=== PATIENT | male | born 1950 | race Caucasian/White ===

== ENCOUNTER 2021-08-05 13:09 | Outpatient (CLI) | payer SELFPAY | END 2021-08-05 13:10 | disposition EMS.NT | LOC: EMS 13:09 | DX: R60.0 Localized edema (principal); L98.8 Other specified disorders of the skin and subcutaneous tissue ==

== ENCOUNTER 2021-08-05 13:49 | Emergency (ER) | payer SELFPAY ==
[2021-08-05 14:30] LABS: BASOPHILS % (AUTO) 0.5 %; EOSINOPHILS # (AUTO) 0.1 10^3/uL (0.0-0.7); EOSINOPHILS % (AUTO) 1.5 %; HCT - HEMATOCRIT 44.8 % (42.0-52.0); HGB - HEMOGLOBIN 14.6 g/dL (14.0-18.0); LYMPHOCYTES # (AUTO) 1.2 10^3/uL (1.5-3.5); LYMPHOCYTES % (AUTO) 13.8 %; MEAN CORPUSCULAR HEMOGLOBIN 32.4 pg (27.0-31.0); MEAN CORPUSCULAR HGB CONC 32.6 g/dL (32.0-36.0); MEAN CORPUSCULAR VOLUME 99.6 fL (80.0-94.0); MEAN PLATELET VOLUME 8.8 fL (7.4-11.4); MONOCYTES # (AUTO) 0.5 10^3/uL (0.0-1.0); MONOCYTES % (AUTO) 5.3 %; NEUTROPHILS # (AUTO) 6.6 10^3/uL (1.5-6.6); NEUTROPHILS % (AUTO) 78.5 %; PLT - PLATELET COUNT 208 10^3/uL (130-450); RED CELL DISTRIBUTION WIDTH 13.4 % (12.0-15.0); WHITE BLOOD COUNT 8.4 x10^3/uL (4.8-10.8)
[2021-08-05 14:36] LABS: CALCIUM 9.4 mg/dL (8.5-10.3); CREATININE 0.8 mg/dL (0.6-1.2); MAGNESIUM 1.9 mg/dL (1.7-2.8); POTASSIUM 3.9 mmol/L (3.5-5.0)
--- NOTE | 2021-08-05 14:58 | ED Physician Documentation ---
PD HPI SKIN - Stated complaint Stated Complaint: FEET SWELLING - Chief complaint Chief Complaint: Ext Problem - History obtained from History obtained from: Patient - History of Present Illness Timing - onset: How many days ago (3-4) Timing - duration: Days (3-4) Timing - details: Abrupt onset (He states he has had some dyspnea on exertion for couple of weeks without necessarily noticing any edema orthopnea. Significant onset of bilateral lower leg and feet edema over the last several days with blister formation and weeping. No fever or chills. No chest pain but just short of breath.), Still present Location: RLE, LLE Quality / character: Discolored (mild redness both feet and toes, without noted warmth per se.), Swelling, Draining Associated symptoms: Dyspnea. No: Fever, Headache, Abd pain, N/V/D Similar symptoms before: Has not had sx before Recently seen: Not recently seen, Other (COVID vaccine 5 months ago.) Review of Systems Constitutional: denies: Fever, Chills Nose: denies: Rhinorrhea / runny nose, Congestion Throat: denies: Sore throat Cardiac: reports: Pedal edema (new onset over past several days, significant amount). denies: Chest pain / pressure (but feeling of tightness.), Palpitations, Calf pain Respiratory: reports: Dyspnea. denies: Cough, Hemoptysis GI: denies: Abdominal Pain, Nausea, Vomiting, Diarrhea : denies: Frequency, Unable to Void Skin: reports: Other (blisters with significant dripping weeping both lower legs/feet/toes.) Musculoskeletal: reports: Extremity swelling. denies: Neck pain, Back pain PD PAST MEDICAL HISTORY - Past Medical History Cardiovascular: Hypertension, High cholesterol Respiratory: None Endocrine/Autoimmune: None - Past Surgical History Past Surgical History: Yes - Present Medications Home Medications: Ambulatory Orders Medication Instructions Recorded Confirmed Atorvastatin Calcium [Lipitor] 08/21/15 08/21/15 - Allergies Allergies/Adverse Reactions: Allergies Allergy/AdvReac Type Severity Reaction Status Date / Time No Known Drug Allergies Allergy Verified 08/05/21 13:51 - Social History Does the pt smoke?: No Smoking Status: Never smoker Does the pt drink ETOH?: Yes Does the pt have substance abuse?: No - Immunizations Immunizations are current?: Yes PD ED PE NORMAL - Vitals Vital signs reviewed: Yes (tachycardic. BP okay. Sats 95% RA.) - General General: Alert and oriented X 3, Well developed/nourished, Other (appears somewhat short of breath with talking. ) - HEENT HEENT: Pharynx benign - Neck Neck: Supple, no meningeal sign, No adenopathy, Other (JVD present at 45 degrees) - Cardiac Cardiac: RRR (tachycardic but regular. ), No murmur - Respiratory Respiratory: No: Clear bilaterally (fine crackles at both bases/lower third. No accessory muscle use. Some dyspnea with complete sentences. ) - Abdomen Abdomen: Soft, Non tender, Non distended - Male Male : Other (no scrotal edema. ) - Back Back: No CVA TTP - Derm Derm: Normal color, Warm and dry - Extremities Extremities: No tenderness to palpate, Other (3+ pedal edema in both legs up to the knees. There is some redness and inflammation appearing on the dorsum of both feet and on the toes with blister formation scattered over the feet and lower legs. They are weeping clear yellow fluid without any purulence. Minimal warmth of the skin. symmetric.). No: Normal ROM s pain (sluggish ROM of the lower legs appearing from weak/heavy. ) - Neuro Neuro: Alert and oriented X 3, No motor deficit, Normal speech Eye Opening: Spontaneous Motor: Obeys Commands Verbal: Oriented GCS Score: 15 Results - Vitals Vitals: Vital Signs - 24 hr 08/05/21 08/05/21 08/05/21 13:51 16:07 17:00 Temperature 36.5 C Heart Rate 118 H 92 87 Respiratory 20 18 17 Rate Blood Pressure 160/88 H 137/74 H 140/83 H O2 Saturation 97 95 95 Oxygen O2 Source Room air - Labs Labs: Microbiology 08/05/21 15:14 Wound Culture - Preliminary Foot - Left Laboratory Tests 08/05/21 08/05/21 08/05/21 14:21 14:21 14:21 WBC 8.4 RBC 4.50 L Hgb 14.6 Hct 44.8 MCV 99.6 H MCH 32.4 H MCHC 32.6 RDW 13.4 Plt Count 208 MPV 8.8 Neut # (Auto) 6.6 Lymph # (Auto) 1.2 L [place] # (Auto) 0.5 Eos # (Auto) 0.1 Baso # (Auto) 0.0 Absolute Nucleated RBC 0.00 Nucleated RBC % 0.0 Sodium 137 Potassium 3.9 Chloride 96 L Carbon Dioxide 29 Anion Gap 12.0 BUN 27 H Creatinine 0.8 Estimated GFR (MDRD) 96 Glucose 180 H Calcium 9.4 Magnesium 1.9 Troponin I High Sens B-Natriuretic Peptide 2225 H Nasal Adenovirus (PCR) Nasal B. parapertussis DNA (PCR) Nasal Coronavir 229E PCR Nasal Coronavir HKU1 PCR Nasal Coronavir NL63 PCR Nasal Coronavir OC43 PCR Nasal Enterovir/Rhinovir PCR Nasal Influenza B PCR Nasal Influenza A PCR Nasal Parainfluen 1 PCR Nasal Parainfluen 2 PCR Nasal Parainfluen 3 PCR Nasal Parainfluen 4 PCR Nasal RSV (PCR) Nasal B.pertussis DNA PCR Nasal C.pneumoniae (PCR) Td Human Metapneumo PCR Nasal M.pneumoniae (PCR) Nasal SARS-CoV-2 (PCR) 08/05/21 08/05/21 14:24 15:42 WBC RBC Hgb Hct MCV MCH MCHC RDW Plt Count MPV Neut # (Auto) Lymph # (Auto) [place] # (Auto) Eos # (Auto) Baso # (Auto) Absolute Nucleated RBC Nucleated RBC % Sodium Potassium Chloride Carbon Dioxide Anion Gap BUN Creatinine Estimated GFR (MDRD) Glucose Calcium Magnesium Troponin I High Sens 87.2 H* B-Natriuretic Peptide Nasal Adenovirus (PCR) NOT DETECTED Nasal B. parapertussis DNA (PCR) NOT DETECTED Nasal Coronavir 229E PCR NOT DETECTED Nasal Coronavir HKU1 PCR NOT DETECTED Nasal Coronavir NL63 PCR NOT DETECTED Nasal Coronavir OC43 PCR NOT DETECTED Nasal Enterovir/Rhinovir PCR NOT DETECTED Nasal Influenza B PCR NOT DETECTED Nasal Influenza A PCR NOT DETECTED Nasal Parainfluen 1 PCR NOT DETECTED Nasal Parainfluen 2 PCR NOT DETECTED Nasal Parainfluen 3 PCR NOT DETECTED Nasal Parainfluen 4 PCR NOT DETECTED Nasal RSV (PCR) NOT DETECTED Nasal B.pertussis DNA PCR NOT DETECTED Nasal C.pneumoniae (PCR) NOT DETECTED Td Human Metapneumo PCR NOT DETECTED Nasal M.pneumoniae (PCR) NOT DETECTED Nasal SARS-CoV-2 (PCR) NOT DETECTED - Rads (name of study) chest xray Radiology: Prelim report reviewed (enlarged heart silhouette. right atelectasis. ), See rad report duplex lower legs bilater Radiology: Prelim report reviewed (no DVT), See rad report PD MEDICAL DECISION MAKING - ED course Complexity details: reviewed results, considered differential (new onset CHF, consider heart failure, DC, renal failure, DVTs. Feet/legs do not appear infected and he does have general CHF symptoms so does not appear cellulitis/bullous impetigo. ), d/w patient ED course: The patient had been having significant difficulty with ambulating at home and states he was barely able to make it to the bathroom and back given his new trouble breathing and swelling of the legs. He does have significant edema to the point of blistering and weeping. They do not look infected per se. Ultrasound was done to evaluate for DVT and no DVT seen. He does have dyspnea on exertion but does not have significant crackles in the lungs so seems more likely right heart failure with some element of left heart failure. We do not have any beds available at our facility. The CNO had called surrounding facilities and also the [facility] transfer form and apparently no immediate beds available in surrounding facilities. At this point I feel the patient is not quite well enough for discharge and needs further diuresis and better evaluation of the new onset CHF. Therefore at this point will be boarding him in the ER with continued treatment of diuretics, watching electrolytes, wound care of the leg and feet blisters. We can reevaluate tomorrow and hopefully get an echocardiogram in the morning. Depending upon level of improvement, he might be able to discharge at that point for further outpatient evaluation and treatment. Otherwise we can see if beds become available upon discharge is tomorrow. Departure - Departure Clinical Impression: New onset of congestive heart failure, Dyspnea on exertion, Leg edema, Blister of leg Condition: Stable Record reviewed to determine appropriate education?: Yes
[2021-08-05] MEDS ORDERED: FUROSEMIDE 40 MG/4 ML VIAL IVP STA ×2 (15:17→17:17)
--- NOTE | 2021-08-05 15:45 | XRAY Report ---
PROCEDURE: Chest 1 View X-Ray INDICATIONS: chest pain TECHNIQUE: One view of the chest was acquired. COMPARISON: None. FINDINGS: SUPPORT DEVICES: Partially imaged cervical spine hardware. LUNGS/PLEURA: Minimal right lower lung zone densities. The remaining lung zones well aerated. No pleu ral effusion or pneumothorax. MEDIASTINUM: Enlargement of cardiac silhouette, partially exaggerated by technique BONES/SOFT TISSUES: No acute abnormality. Persistent elevation of the right diaphragm. IMPRESSION: 1.Right basilar atelectasis. Reviewed by: Luis Russell MD on 08/05/2021 3:44 PM PST Approved by: Luis Russell MD on 08/05/2021 3:44 PM PST Station ID: [id number]
[2021-08-05 16:56] LABS: B. PARAPERTUSSIS- RESP PCR PAN NOT DETECTED; B. PERTUSSIS- RESP PCR PANEL NOT DETECTED; C. PNEUMONIAE- RESP PCR PANEL NOT DETECTED; CORONAVIRUS 229E-RESP PCR NOT DETECTED; CORONAVIRUS HKU1-RESP PCR NOT DETECTED; CORONAVIRUS NL63-RESP PCR NOT DETECTED; CORONAVIRUS OC43-RESP PCR NOT DETECTED; HUMAN METAPNEUMOVIRUS NOT DETECTED; INFLUENZA A- RESP PCR PANEL NOT DETECTED; INFLUENZA B - RESP PCR PANEL NOT DETECTED; M. PNEUMONIAE- RESP PCR PANEL NOT DETECTED; PARAINFLUENZA VIRUS 1 NOT DETECTED; PARAINFLUENZA VIRUS 2 NOT DETECTED; PARAINFLUENZA VIRUS 3 NOT DETECTED; PARAINFLUENZA VIRUS 4 NOT DETECTED; RHINOVIRUS/ENTEROVIRUS NOT DETECTED; RSV- RESP PCR PANEL NOT DETECTED; SARS-CoV-2 -RESP PCR PANEL NOT DETECTED
--- NOTE | 2021-08-05 17:11 | Ultrasound Report ---
PROCEDURE: Duplex Ext Veins Bilateral INDICATIONS: Bilateral leg swelling. TECHNIQUE: Real-time imaging, as well as color and pulse Doppler interrogation, were performed of the deep veins of both legs from the inguinal ligament to the popliteal fossa. COMPARISON: None. FINDINGS: The deep veins are normally compressible, and free of intraluminal thrombus. Color and pu lse Doppler demonstrate normal phasic intravascular flow. There is normal augmentation response to d istal compression maneuver. Right greater than left lower extremity edema. IMPRESSION: 1. No sonographic evidence of DVT. Reviewed by: Luis Russell MD on 08/05/2021 5:09 PM [facility] Approved by: Luis Russell MD on 08/05/2021 5:09 PM [facility] Station ID: [id number]
[2021-08-05] MEDS ORDERED: ACETAMINOPHEN 325 MG TABLET PO STA (21:00)
[2021-08-05] MEDS: FUROSEMIDE 40 MG/4 ML VIAL IVP SCH (21:01)
[2021-08-05] MEDS ORDERED: oxyCODONE 5 MG TABLET PO STA (21:36)
[2021-08-05] MEDS ORDERED: METOPROLOL 5 MG/5 ML VIAL IVP STA (22:56)
[2021-08-05] MEDS ORDERED: METOPROLOL TARTRATE 50 MG TABLET PO STA (22:56)
[2021-08-06 06:57] LABS: BASOPHILS % (AUTO) 0.4 %; EOSINOPHILS # (AUTO) 0.1 10^3/uL (0.0-0.7); EOSINOPHILS % (AUTO) 0.7 %; HCT - HEMATOCRIT 41.8 % (42.0-52.0); HGB - HEMOGLOBIN 13.6 g/dL (14.0-18.0); LYMPHOCYTES # (AUTO) 1.1 10^3/uL (1.5-3.5); LYMPHOCYTES % (AUTO) 11.8 %; MEAN CORPUSCULAR HEMOGLOBIN 32.4 pg (27.0-31.0); MEAN CORPUSCULAR HGB CONC 32.5 g/dL (32.0-36.0); MEAN CORPUSCULAR VOLUME 99.5 fL (80.0-94.0); MEAN PLATELET VOLUME 8.8 fL (7.4-11.4); MONOCYTES # (AUTO) 0.6 10^3/uL (0.0-1.0); MONOCYTES % (AUTO) 7.1 %; NEUTROPHILS # (AUTO) 7.2 10^3/uL (1.5-6.6); NEUTROPHILS % (AUTO) 79.7 %; PLT - PLATELET COUNT 181 10^3/uL (130-450); RED CELL DISTRIBUTION WIDTH 13.6 % (12.0-15.0)
[2021-08-06 07:10] LABS: ALBUMIN 3.4 g/dL (3.2-5.5); BILIRUBIN,TOTAL 1.4 mg/dL (0.2-1.0); CALCIUM 8.9 mg/dL (8.5-10.3); CREATININE 0.8 mg/dL (0.6-1.2); POTASSIUM 3.8 mmol/L (3.5-5.0); TOTAL PROTEIN 6.7 g/dL (6.7-8.2)
[2021-08-06] MEDS: FUROSEMIDE 40 MG/4 ML VIAL IVP SCH (08:54)
[2021-08-06] MEDS ORDERED: POTASSIUM CHLORIDE 20 MEQ TABLET PO SCH (09:00)
--- NOTE | 2021-08-06 09:11 | XRAY Report ---
PROCEDURE: Chest 1 View X-Ray INDICATIONS: dyspnea TECHNIQUE: One view of the chest was acquired. COMPARISON: 08/05/2021 FINDINGS: Surgical changes and devices: Stable appearance of surgical fusion hardware of the cervical spine. Lungs and pleura: Stable eventration of the right hemidiaphragm. Minimal streaky right basilar opaci ties compatible with atelectasis. No pleural effusions or pneumothorax. Lungs are otherwise clear. Mediastinum: Mediastinal contours appear normal. Heart size is normal. Bones and chest wall: No suspicious bony lesions. Overlying soft tissues appear unremarkable. IMPRESSION: Stable examination of the chest with minimal right basilar opacities consistent with atelectasis. Reviewed by: Hussein Ceja MD on 08/06/2021 9:09 AM PST Approved by: Hussein Ceja MD on 08/06/2021 9:09 AM PST Station ID: [id number]
[2021-08-06 11:14] VITALS: BP 125/70
[2021-08-06] MEDS ORDERED: METOPROLOL 5 MG/5 ML VIAL IVP STA (12:38)
--- NOTE | 2021-08-06 13:15 | ED Physician Documentation ---
ED Addendum - Addendum Addendum: 08/06/21 13:10The patient continue with some diuresing overnight. Nursing notes show 1800 mL of fluid out from initial diuretics through overnight. He did urinate again this morning which had not been counted as yet. His blood pressure remains approximately 118 systolic. Heart rate had reportedly gone up to 100 or so overnight and was given metoprolol dosing. Current heart rate is 50s. He is having intermittent PVCs and did have 2 or 3 episodes of repeated PVCs (brief V. tach) of 5-6 beats. He is not having those this morning. He is having some dyspnea with laying down but no significant work of breathing. His oxygenation is good at 95% on nasal cannula. Chest x-ray this morning still showed some increased vascularity but no significant worsening. His BNP was increased to 2900 from 2200. His troponin has increased from 82 now 350. Echocardiogram done this morning showed a significant cardio myopathy with enlarged global hypokinesis and particularly an enlarged right atrium. Ejection fraction was 25%. At this point the patient does appear to need more extensive cardiac evaluation with likely heart cath. I talked with the hospitalist Dr. Ha and also the campaign analyst Dr. Britt at [facility] and they are accepting the patient in transfer. The patient is agreeable. Disposition: The patient is transferred to acute care facility in stable condition. Diagnoses: 1. Acute bilateral leg edema with blistering 2. New onset congestive heart failure 3. Cardiomyopathy with poor ejection fraction of 25% 4. PVCs 5. Bilateral foot pain with blisters
== END 2021-08-06 13:10 | disposition short-term general hospital (02) ==
LOC: ED 13:49
DX: I11.0 Hypertensive heart disease with heart failure (principal); I50.9 Heart failure, unspecified; I43 Cardiomyopathy in diseases classified elsewhere; I49.3 Ventricular premature depolarization; I34.0 Nonrheumatic mitral (valve) insufficiency; M79.672 Pain in left foot; M79.671 Pain in right foot; R23.8 Other skin changes; Z20.822 Contact with and (suspected) exposure to COVID-19
CPT/HCPCS: 0202U; 36415; 71045; 80048; 80053; 83690; 83735; 83880; 84484; 85025; 87070; 87205; 93005; 93306; 93970; 96374; 96375; 96376; 99284; 99285; A9270; 87077; 87181

== ENCOUNTER 2022-09-10 09:25 | Emergency (ER) | payer MEDICARE, OTHER ==
--- NOTE | 2022-09-10 12:18 | MRI Report ---
PROCEDURE: BRAIN WO INDICATIONS: fall on blood thinners; head injury; no CT today TECHNIQUE: Noncontrast axial T1 spin echo, axial T2 fast spin echo, sagittal and axial FLAIR, coronal T2 fast sp in echo, axial gradient echo, axial diffusion and ADC through the brain. COMPARISON: Correlation is made with facial bone CT, 08/21/2015 FINDINGS: Image quality: Excellent. CSF Spaces: Basal cisterns are patent. There is an arachnoid cyst seen involving the posterior aspe ct of the posterior fossa, as on series 5 image 12 and on series 8 image 4. Ventricles are normal in size and shape. Brain: In this patient with this given history, scrutiny is given to an acute intracranial hemorrhag e. None can be seen. No intracranial masses. Diallo/white matter interface is normal. Brainstem appears normal. Diffusion -weighted images demonstrate no acute ischemic insult. No chronic ischemic insults. Normal intravas cular flow voids are present. Age-appropriate brain parenchymal volume loss and chronic small vessel ischemic change can be seen. Skull and face: There is a right lateral forehead scalp hematoma seen, as on series 6 image 13 and o n series 8 image 13. Calvarium has normal marrow signal. Orbits appear normal. Sinuses: Sinuses and mastoids are clear. IMPRESSION: To the limits of MRI, no findings of acute intracranial hemorrhage are seen. Right lateral forehead scalp hematoma noted. Additional findings: Posterior fossa arachnoid cyst Age-appropriate brain parenchymal volume loss Mild chronic small vessel ischemic change Reviewed by: Je Gomez MD on 09/10/2022 11:16 AM [facility] Approved by: Je Gomez MD on 09/10/2022 11:16 AM [facility] Station ID: [id number]
[2022-09-10] MEDS ORDERED: TETANUS/DIPHTHERIA/PERTUSSIS 0.5 ML SYRINGE IM ONE (12:51)
[2022-09-10 13:10] VITALS: BP 140/64
--- NOTE | 2022-09-10 13:45 | ED Physician Documentation ---
PD HPI HEAD INJURY - Stated complaint Stated Complaint: GLF HEAD LAC - Chief complaint Chief Complaint: Trauma Hd/Nk - History obtained from History obtained from: Patient - Additional information Additional information: Patient is a 72-year-old male with a history of coronary artery disease on Plavix presenting for evaluation of a head injury after a ground-level fall. He was taking his bins out to the curb when he stumbled and fell. He did strike his head. He denies LOC.He denies having dizziness, visual disturbances, chest pain or difficulty breathing.He does have laceration to his right eyebrow area. He is unsure of his last tetanus. Review of Systems Constitutional: denies: Fever Nose: denies: Congestion Cardiac: denies: Chest pain / pressure GI: denies: Abdominal Pain : denies: Dysuria Skin: reports: Laceration (s) Neurologic: reports: Head injury PD PAST MEDICAL HISTORY - Past Medical History Cardiovascular: Hypertension, High cholesterol Respiratory: None Endocrine/Autoimmune: None - Past Surgical History Past Surgical History: Yes - Present Medications Home Medications: Ambulatory Orders Medication Instructions Recorded Confirmed Atorvastatin Calcium [Lipitor] 08/21/15 08/21/15 - Allergies Allergies/Adverse Reactions: Allergies Allergy/AdvReac Type Severity Reaction Status Date / Time No Known Drug Allergies Allergy Verified 09/10/22 09:51 - Social History Does the pt smoke?: No Smoking Status: Never smoker Does the pt drink ETOH?: Yes Does the pt have substance abuse?: No - Immunizations Immunizations are current?: Yes PD ED PE NORMAL - General General: Alert and oriented X 3, No acute distress, Well developed/nourished - HEENT HEENT: PERRL, EOMI, Pharynx benign, Other (2 lacerations Near her right eyebrow With surrounding contusion) - Neck Neck: Supple, no meningeal sign, No bony TTP, C-Spine cleared by NEXUS criteria - Cardiac Cardiac: RRR, No murmur - Respiratory Respiratory: No respiratory distress, Clear bilaterally - Abdomen Abdomen: Soft, Non tender - Derm Derm: Warm and dry - Extremities Extremities: No edema - Neuro Neuro: Alert and oriented X 3, manager strategy 2-12 intact, No motor deficit, No sensory deficit, Normal speech Eye Opening: Spontaneous Motor: Obeys Commands Verbal: Oriented GCS Score: 15 Results - Vitals Vitals: Vital Signs - 24 hr 09/10/22 09/10/22 09:42 13:09 Temperature 36.3 C L Heart Rate 77 60 Respiratory 16 12 Rate Blood Pressure 139/97 H 140/64 H O2 Saturation 96 97 Oxygen O2 Source Room air Procedures - Laceration (location) Right eyebrow Length in cm: 2 Wound type: Irregular (Area of abraded skin) Anesthesia: Lidocaine 1% with epi Wound preparation: Hibiclens, Irrigated copiously NS Skin layer closure: Interrupted, Sutures - enter # (5) Other: Patient tolerated well, No complications, Tetanus booster given Right supraorbital Length in cm: 1.5 Wound type: Linear, Clean Anesthesia: Lidocaine 1% with epi Wound preparation: Hibiclens, Irrigated copiously NS Skin layer closure: Interrupted, Sutures - enter # (3) Other: Patient tolerated well, No complications, Tetanus booster given PD Medical Decision Making - ED course Complexity details: reviewed results, re-evaluated patient, d/w patient, d/w family ED course: Patient presenting by private vehicle to the emergency department after ground- level fall. He is on Plavix. His neuro exam is normal. Unfortunately CT scan is down for the entirety of the day. I did discuss this with Dr. Monroe (Radiology) To ask with her an MRI of the brain it would be a comparable study to evaluate for intracranial bleed after head trauma. He states that it is a reasonable option. He did state that it would not be as sensitive to look for bone injury but I am not as concerned about that. The MRI did not show signs of intracranial hemorrhage. He did have 2 lacerations which required suture repair. Patient is counseled on wound care instructions, need to return for suture removal as well as concerning symptoms to return for. Departure - Departure Disposition: Home, Self Care Clinical Impression: Head injury, Eyebrow laceration Condition: Stable Instructions: ED Head Injury Closed, ED Laceration Facial Sutr Tape Comments: You were evaluated after head injury. You have 2 small wounds that were sutured. You have a total of [address] These should be removed in 1 week on September 17. You can return to the emergency department or to the walk- in clinic to have the stitches removed.Because you are on Plavix and hit your head we did obtain images of your brain. We did not have CT available today so an MRI was done which does not show any bleeding or other abnormalities. However if you have any new or worsening symptoms such as worsening headache, weakness or any concerns you should return immediately to the emergency department. Discharge Date/Time: 09/10/22 13:48
== END 2022-09-10 13:48 | disposition home or self-care (01) ==
LOC: ED 09:25
DX: S09.90XA Unspecified injury of head, initial encounter (principal); S01.111A Laceration without foreign body of right eyelid and periocular area, initial encounter; W01.10XA Fall on same level from slipping, tripping and stumbling with subsequent striking against unspecified object, initial encounter; Y93.01 Activity, walking, marching and hiking; Y92.008 Other place in unspecified non-institutional (private) residence as the place of occurrence of the external cause; Z79.01 Long term (current) use of anticoagulants
CPT/HCPCS: 12013; 36415; 90471; 99284

== ENCOUNTER 2023-06-19 14:32 | Outpatient (CLI) | payer MEDICARE, OTHER ==
--- NOTE | 2023-06-20 17:25 | XRAY Report ---
PROCEDURE: Calcaneus LT INDICATIONS: LT CALCARNEUS PX TECHNIQUE: Two views of the calcaneus were acquired. COMPARISON: None FINDINGS: Bones: Plantar and posterior calcaneal spurs are present. Discontinuity of the posterior calcaneal sp ur could represent an age-indeterminate osteophyte fracture. Otherwise no calcaneal fracture identifi ed. Soft tissues: No suspicious calcifications. IMPRESSION: Plantar and posterior calcaneal spurs are present. Discontinuity of the posterior calcaneal spur coul d represent an age-indeterminate osteophyte fracture. Otherwise no calcaneal fracture identified. If symptoms persist, follow-up radiographs and/or CT or MRI may be helpful for further evaluation. Reviewed by: Bayron Clark MD on 06/20/2023 5:24 PM PDT Approved by: Bayron Clark MD on 06/20/2023 5:24 PM PDT Station ID: [id number]
== END 2023-06-19 14:33 | disposition home or self-care (01) ==
LOC: DI 14:32
PROVIDERS: ATTEND Podiatrist
DX: M77.32 Calcaneal spur, left foot (principal)